=== PATIENT | male | born 1995 | race Two or more races ===

== ENCOUNTER 2018-07-09 09:06 | Emergency (ER) | payer SELFPAY ==
[~2018-07-09] VITALS: Ht 185.4 cm; Wt 88.5 kg
[2018-07-09 09:16] VITALS: BP 119/73
--- NOTE | 2018-07-09 09:39 | Emergency Room Report ---
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 Denies any chest pain denies any focal weakness in his lower extremities denies any neuropathy Denies any loss of control of bowel/urination Pain is localized to the left lower back Denies any fall or trauma denies any dysuria Allergies: Coded Allergies: No Known Allergies (Unverified , 07/09/18) Patient History Past Medical History: see triage record Pertinent Family History: none Reviewed Nursing Documentation: PMH: Agreed; PSxH: Agreed Nursing Documentation-PMH Past Medical History: No Stated History Review of Systems All Other Systems: negative except mentioned in HPI Physical Exam Vital Signs Date Time Temp Pulse Resp B/P (MAP) Pulse Ox O2 Delivery O2 Flow Rate FiO2 07/09/18 09:11 98.2 75 16 119/73 98 Room Air Sp02 EP Interpretation: reviewed, normal General Appearance: well appearing Head: normocephalic, atraumatic Eyes: bilateral eye PERRL, bilateral eye EOMI ENT: hearing grossly normal, normal pharynx Neck: supple Respiratory: lungs clear, normal breath sounds Cardiovascular #1: regular rate, rhythm Gastrointestinal: soft Musculoskeletal: other - Tenderness is palpated over the left posterior superior iliac crest no midline tenderness or step-offs, sensory is intact patient and bleeding without any deficit, Neurologic: alert, oriented x3, responsive, spring encaser III-XII nml as tested Skin: normal color, no rash Lymphatic: no adenopathy Medical Decision Making Diagnostic Impression: Primary Impression: Sciatica Additional Impression: Back pain ER Course Patient's clinical history and exam is consistent with back pain likely associated with muscle skeletal/ligamental pathology Given the location there is consideration for sciatic nerve irritation as well Patient does not show any neurological deficits there was no other obvious acute trauma to consider x-ray imaging Patient requires close outpatient follow-up possible further imaging is needed if symptoms continue And return to the emergency room with any worsening pathology Last Vital Signs Date Time Temp Pulse Resp B/P (MAP) Pulse Ox O2 Delivery O2 Flow Rate FiO2 07/09/18 09:16 98.2 75 16 119/73 98 Room Air Status: improved Disposition: HOME, SELF-CARE Condition: Improved Scripts Methocarbamol* (ROBAXIN-750*) 750 Mg Tablet 750 MG PO TID, #21 TAB 0 Refills Prov: Viridiana Funez DO 07/09/18 Ibuprofen* (MOTRIN*) 600 Mg Tablet 600 MG ORAL Q8H PRN for For Pain, #20 TAB 0 Refills Prov: Viridiana Funez DO 07/09/18 Referrals: NOT CHOSEN IPA/MD,REFERRING (PCP) Additional Instructions: Patient is provided with the discharge instructions notified to follow up with primary doctor in the next 2-3 days otherwise return to the er with any worsening symptoms. Please note that this report is being documented using Digital Message [employer] technology. This can lead to erroneous entry secondary to incorrect interpretation by the dictating instrument. Viridiana Funez DO Jul 09, 2018 09:39
[2018-07-09] MEDS ORDERED: ROBAXIN-750750 MG PO (09:40)
[2018-07-09] MEDS ORDERED: IBUPROFEN600 MG ORAL (09:40)
[2018-07-09 09:50] VITALS: BP 119/73
== END 2018-07-09 09:52 | disposition home or self-care (01) ==
LOC: EMR 09:13
DX: M54.32 Sciatica, left side (principal); F17.200 Nicotine dependence, unspecified, uncomplicated
CPT/HCPCS: 99283